=== PATIENT | female | born 1990 | race African-American/Black ===

== ENCOUNTER 2021-01-23 09:28 | Emergency (ER) | payer OTHER ==
[~2021-01-23] VITALS: Ht 149.9 cm; Wt 75.0 kg
[2021-01-23 10:19] LABS: HEMATOCRIT 39.2 % (37.0-47.0); HEMOGLOBIN 12.6 g/dl (12.0-16.0); IMMATURE GRANULOCYTES 0.3 % (0.0-5.0); MEAN CELL VOLUME 88.9 fL CALC (80.0-100.0); MEAN CORPUSCULAR HGB 28.6 pG CALC (26.0-32.0); MEAN CORPUSCULAR HGB CONC 32.1 g/dL CAL (32.0-36.0); NEUT# 6.81 thou/uL (2.00-7.15); RED BLOOD COUNT 4.41 mill/uL (4.20-5.60); RED CELL DISTRI WIDTH 13.3 % (11.5-15.5)
[2021-01-23] MEDS ORDERED: LOSARTAN POTASS50 MG PO (10:43)
[2021-01-23] MEDS ORDERED: ZOFRAN4 MG/TAB PO (13:54)
[2021-01-23 14:29] VITALS: BP 114/70
== END 2021-01-23 14:30 | disposition home or self-care (01) ==
LOC: ED 09:28
DX: O26.891 Other specified pregnancy related conditions, first trimester (principal); R11.0 Nausea; O16.1 Unspecified maternal hypertension, first trimester; O09.291 Supervision of pregnancy with other poor reproductive or obstetric history, first trimester; Z3A.01 Less than 8 weeks gestation of pregnancy

== ENCOUNTER 2021-08-13 11:24 | Emergency (ER) | payer OTHER ==
[~2021-08-13] VITALS: Ht 149.9 cm; Wt 82.0 kg
[~2021-08-13 11:24] MED LIST: LOSARTAN POTASS50 MG PO; ZOFRAN4 MG/TAB PO
[2021-08-13 11:40] VITALS: BP 147/77
[2021-08-13] MEDS ORDERED: NORMODYNE/TRAN100 MG PO (11:56)
== END 2021-08-13 11:50 | disposition left against medical advice (07) ==
LOC: ED 11:24
DX: O26.893 Other specified pregnancy related conditions, third trimester (principal); R10.30 Lower abdominal pain, unspecified; Z91.19 Patient's noncompliance with other medical treatment and regimen; Z3A.35 35 weeks gestation of pregnancy

== ENCOUNTER 2021-12-09 13:12 | Emergency (ER) | payer OTHER ==
[~2021-12-09] VITALS: Ht 149.9 cm; Wt 80.0 kg
[~2021-12-09 13:12] MED LIST changes: +NORMODYNE/TRAN100 MG PO
[2021-12-09] MEDS ORDERED: B-1250 MCG PO (13:57)
[2021-12-09] MEDS ORDERED: ZINC50 M1 PO (13:57)
[2021-12-09 15:15] LABS: HEMATOCRIT 42.7 % (37.0-47.0); HEMOGLOBIN 13.6 g/dl (12.0-16.0); IMMATURE GRANULOCYTES 0.2 % (0.0-5.0); MEAN CELL VOLUME 90.1 fL CALC (80.0-100.0); MEAN CORPUSCULAR HGB 28.7 pG CALC (26.0-32.0); MEAN CORPUSCULAR HGB CONC 31.9 g/dL CAL (32.0-36.0); NEUT# 5.94 thou/uL (2.00-7.15); RED BLOOD COUNT 4.74 mill/uL (4.20-5.60); RED CELL DISTRI WIDTH 15.7 % (11.5-15.5)
[2021-12-09 15:32] LABS: ALBUMIN 4.7 g/dL (3.2-5.0); ALKALINE PHOSPHATASE 119 u/l (38-126); ANION GAP 13 (6-22 (CALC)); BILIRUBIN, TOTAL 0.9 mg/dL (0.0-1.4); BUN 8 mg/dL (7-17); BUN/CREATININE RATIO 12 (12-20 (CALC)); CARBON DIOXIDE 26 mmol/l (22-30); CHLORIDE 105 mmol/l (95-108); CREATININE 0.7 mg/dL (0.5-1.0); GFR > 60 ML/MIN (>=60 (CALC)); GFR FOR AFR.AMER. > 60 ML/MIN (>=60 (CALC)); POTASSIUM 3.9 mmol/l (3.5-5.1); SGOT/AST 31 u/l (14-36); SODIUM 140 mmol/l (137-146); TOTAL PROTEIN 9.1 g/dL (6.3-8.2)
[2021-12-09 15:39] LABS: URINE BILIRUBIN - DIPSTICK NEGATIVE (NEGATIVE); URINE BLOOD DIPSTICK NEGATIVE (NEGATIVE); URINE COLOR YELLOW; URINE GLUCOSE - DIPSTICK NEGATIVE (NEGATIVE); URINE KETONE NEGATIVE (NEGATIVE); URINE LEUK ESTERASE NEGATIVE (NEGATIVE); URINE PH 6.5 (4.5-8.0); URINE PROTEIN - DIPSTICK NEGATIVE (NEG-TRACE); URINE SPECIFIC GRAVITY <=1.005; URINE UROBILINOGEN - DIPSTICK 0.2 E.U./dL (0.2)
[2021-12-09 15:40] LABS: URINE NITRITE - DIPSTICK NEGATIVE (Negative)
[2021-12-09 17:17] VITALS: BP 163/99
== END 2021-12-09 17:29 | disposition home or self-care (01) ==
LOC: ED 13:12
PROVIDERS: Emergency Medicine
DX: I10 Essential (primary) hypertension (principal); Z20.2 Contact with and (suspected) exposure to infections with a predominantly sexual mode of transmission

== ENCOUNTER 2022-11-21 09:12 | Emergency (ER) | payer OTHER ==
[~2022-11-21] VITALS: Ht 149.9 cm; Wt 77.0 kg
[~2022-11-21 09:12] MED LIST changes: +B-1250 MCG PO; +ZINC50 M1 PO
[2022-11-21] MEDS ORDERED: CEPHALEXIN500 MG PO (10:03)
[2022-11-21 10:44] VITALS: BP 154/98
[2022-11-21] MEDS ORDERED: DIFLUCAN150 MG PO (10:45)
== END 2022-11-21 10:55 | disposition home or self-care (01) ==
LOC: ED 09:12
DX: S21.212A Laceration without foreign body of left back wall of thorax without penetration into thoracic cavity, initial encounter (principal); S00.81XA Abrasion of other part of head, initial encounter; I10 Essential (primary) hypertension; F17.200 Nicotine dependence, unspecified, uncomplicated; X99.1XXA Assault by knife, initial encounter; Y92.29 Other specified public building as the place of occurrence of the external cause

== ENCOUNTER 2022-12-03 08:11 | Emergency (ER) | payer OTHER ==
[~2022-12-03] VITALS: Ht 149.9 cm; Wt 83.5 kg
[~2022-12-03 08:11] MED LIST changes: +CEPHALEXIN500 MG PO; +DIFLUCAN150 MG PO
[2022-12-03 08:36] VITALS: BP 151/101
[2022-12-03 09:30] VITALS: BP 150/84
== END 2022-12-03 09:40 | disposition home or self-care (01) ==
LOC: ED 08:11
DX: S41.012D Laceration without foreign body of left shoulder, subsequent encounter (principal); X58.XXXD Exposure to other specified factors, subsequent encounter

== ENCOUNTER 2023-12-20 11:09 | Emergency (ER) | payer OTHER ==
[~2023-12-20] VITALS: Ht 149.9 cm; Wt 80.2 kg
[~2023-12-20 11:09] MED LIST changes: +MEDDOSEPAK PO; +ZITHROMAX250 MG PO
[2023-12-20] MEDS ORDERED: SODIUM CHLORIDE 0.9% 1,000 ML IV ONE (11:35)
[2023-12-20 12:02] LABS: BASO% 0.2 % (0-3); EOS% 0.4 % (0-8); HEMATOCRIT 39.6 % (37.0-47.0); HEMOGLOBIN 12.8 g/dl (12.0-16.0); IMMATURE GRANULOCYTES 0.2 % (0.0-5.0); LYMPH% 32.5 % (15-41); MEAN CELL VOLUME 88.4 fL CALC (80.0-100.0); MEAN CORPUSCULAR HGB 28.6 pG CALC (26.0-32.0); MEAN CORPUSCULAR HGB CONC 32.3 g/dL CAL (32.0-36.0); MONO% 10.6 % (2-13); NEUT# 5.85 thou/uL (2.00-7.15); NEUT% 56.1 % (42-76); RED BLOOD COUNT 4.48 mill/uL (4.20-5.60); RED CELL DISTRI WIDTH 14.2 % (11.5-15.5)
[2023-12-20 12:40] LABS: ALBUMIN 4.9 g/dL (3.2-5.0); ALKALINE PHOSPHATASE 103 u/l (38-126); ANION GAP 15 (6-22 (CALC)); BILIRUBIN, TOTAL 0.5 mg/dL (0.02-1.3); BUN 9 mg/dL (7-17); BUN/CREATININE RATIO 10 (12-20 (CALC)); CARBON DIOXIDE 24 mmol/l (22-30); CHLORIDE 104 mmol/l (95-108); CREATININE 0.9 mg/dL (0.5-1.0); GFR FOR AFR.AMER. > 60 ML/MIN (>=60 (CALC)); GFR OTHER RACES > 60 ML/MIN (>=60 (CALC)); SODIUM 139 mmol/l (137-146)
[2023-12-20 12:44] LABS: SGOT/AST 65 u/l (14-36)
[2023-12-20] MEDS ORDERED: TAM75CAP PO (13:01)
[2023-12-20 13:19] VITALS: BP 142/82
== END 2023-12-20 13:23 | disposition home or self-care (01) ==
LOC: ED 11:09
PROVIDERS: Family Medicine
DX: J10.1 Influenza due to other identified influenza virus with other respiratory manifestations (principal); I10 Essential (primary) hypertension; Z72.0 Tobacco use; Z20.822 Contact with and (suspected) exposure to COVID-19

== ENCOUNTER 2024-07-06 07:57 | Emergency (ER) | payer OTHER ==
[~2024-07-06] VITALS: Ht 149.9 cm; Wt 99.7 kg
[~2024-07-06 07:57] MED LIST changes: +TAM75CAP PO
[2024-07-06 08:05] VITALS: BP 142/78
[2024-07-06] MEDS ORDERED: COZAAR25 MG PO (08:11)
[2024-07-06] MEDS ORDERED: AMLODIPINE BESY10 MG PO (08:11)
[2024-07-06 08:29] LABS: URINE BLOOD DIPSTICK Trace-intact (NEGATIVE); URINE GLUCOSE - DIPSTICK Negative (NEGATIVE); URINE KETONE Trace mg/dL (NEGATIVE); URINE LEUK ESTERASE Trace (NEGATIVE); URINE NITRITE - DIPSTICK Negative (Negative); URINE PROTEIN - DIPSTICK Negative (NEG-TRACE); URINE SPECIFIC GRAVITY 1.015; URINE UROBILINOGEN - DIPSTICK 0.2 E.U./dL (0.2)
[2024-07-06 08:29] LABS: BASO% 0.3 % (0-3); EOS% 0.5 % (0-8); HEMATOCRIT 41.7 % (37.0-47.0); HEMOGLOBIN 13.5 g/dl (12.0-16.0); IMMATURE GRANULOCYTES 0.1 % (0.0-5.0); LYMPH% 51.1 % (15-41); MEAN CELL VOLUME 88.7 fL CALC (80.0-100.0); MEAN CORPUSCULAR HGB 28.7 pG CALC (26.0-32.0); MEAN CORPUSCULAR HGB CONC 32.4 g/dL CAL (32.0-36.0); MONO% 5.6 % (2-13); NEUT# 3.32 thou/uL (2.00-7.15); NEUT% 42.4 % (42-76); RED BLOOD COUNT 4.7 mill/uL (4.20-5.60); RED CELL DISTRI WIDTH 14.1 % (11.5-15.5)
[2024-07-06 08:30] LABS: URINE COLOR Yellow
[2024-07-06 08:52] LABS: ALBUMIN 4.7 g/dL (3.2-5.0); ALKALINE PHOSPHATASE 71 u/l (38-126); ANION GAP 12 (6-22 (CALC)); BILIRUBIN, TOTAL 0.5 mg/dL (0.02-1.3); BUN 9 mg/dL (7-17); BUN/CREATININE RATIO 11 (12-20 (CALC)); CARBON DIOXIDE 23 mmol/l (22-30); CHLORIDE 106 mmol/l (95-108); CREATININE 0.9 mg/dL (0.5-1.0); ESTIMATED GFR 87 ML/MIN (>=90 (CALC)); LIPASE 100 u/l (23-300); POTASSIUM 3.8 mmol/l (3.5-5.1); SGOT/AST 31 u/l (14-36); SODIUM 138 mmol/l (137-146); TOTAL PROTEIN 8.4 g/dL (6.3-8.2)
[2024-07-06 09:08] LABS: BETA-HCG, QUANT(RESULT NUMBER) <2 mIU/mL
[2024-07-06] MEDS ORDERED: OMEPRAZOLE DR40 MG PO (09:50)
[2024-07-06 10:00] VITALS: BP 118/65
== END 2024-07-06 10:00 | disposition home or self-care (01) ==
LOC: ED 07:57
PROVIDERS: Family Medicine
DX: L02.412 Cutaneous abscess of left axilla (principal); K29.70 Gastritis, unspecified, without bleeding; I10 Essential (primary) hypertension; Z72.0 Tobacco use